=== PATIENT | male | born 1990 | race Caucasian/White ===

== ENCOUNTER 2022-12-19 03:11 | Inpatient (IN) | payer OTHER ==
[2022-12-19] MEDS ORDERED: HYDROmorphone 1 MG/ML 1 ML SYRINGE IVP STA (03:29)
[2022-12-19] MEDS ORDERED: ONDANSETRON 4 MG/2 ML VIAL IVP STA (03:29)
[2022-12-19] MEDS ORDERED: SODIUM CHLORIDE 0.9% 2,000 ML IV STA (03:29)
[2022-12-19] MEDS ORDERED: LORazepam 2 MG/ML INJ IV STA (03:29)
--- NOTE | 2022-12-19 03:32 | ED ---
General Adult HPI - General Chief complaint: Nausea/Vomiting/Diarrhea Stated complaint: Vomiting, Dehydration Time Seen by Provider: 12/19/22 03:20 Source: patient, RN notes reviewed, old records reviewed Mode of arrival: ambulatory Limitations: no limitations - History of Present Illness Initial comments: 32-year-old male presents for evaluation of severe nausea vomiting, generalized pain throughout his arms and abdomen. Patient has had several episodes similar to this in the past and he has been been told that this was related to marijuana ingestion. He does report generalized abdominal pain associated with multiple episodes of vomiting. - Related Data Home Medications Medication Instructions Recorded Confirmed No Known Home Medications 12/19/22 12/19/22 Allergies Allergy/AdvReac Type Severity Reaction Status Date / Time No Known Allergies Allergy Verified 12/19/22 11:33 Review of Systems ROS Statement: Those systems with pertinent positive or pertinent negative responses have been documented in the HPI. ROS Other: All systems not noted in ROS Statement are negative. Past Medical History Past Medical History: No Reported History History of Any Multi-Drug Resistant Organisms: None Reported Past Surgical History: Appendectomy Past Psychological History: Anxiety, Depression Smoking Status: Never smoker Past Alcohol Use History: Occasional Past Drug Use History: Marijuana - Past Family History Father Family Medical History: Cancer Mother Additional Family Medical History / Comment(s): neurological disorders General Exam Limitations: no limitations General appearance: alert, in distress Head exam: Present: atraumatic, normocephalic Eye exam: Present: normal appearance, PERRL ENT exam: Present: mucous membranes dry Neck exam: Present: normal inspection. Absent: tenderness, meningismus Respiratory exam: Present: normal lung sounds bilaterally, respiratory distress (Tachypneic) Cardiovascular Exam: Present: normal rhythm, tachycardia GI/Abdominal exam: Present: soft, tenderness. Absent: distended Neurological exam: Present: alert, oriented X3 Psychiatric exam: Present: anxious Skin exam: Present: warm, dry, intact Course Vital Signs 12/19/22 12/19/22 12/19/22 03:16 05:07 09:05 Temperature 97.8 F 98.5 F Pulse Rate 130 H 78 Pulse Rate [ 78 Pulse Oximetery ] Respiratory 20 20 18 Rate Blood Pressure 116/75 97/58 Blood Pressure 99/60 [Left Arm] O2 Sat by Pulse 96 94 L 97 Oximetry 12/19/22 12/19/22 12/19/22 10:36 12:00 14:57 Temperature Pulse Rate Pulse Rate [ 78 63 63 Pulse Oximetery ] Respiratory 18 18 18 Rate Blood Pressure Blood Pressure 123/78 [Left Arm] O2 Sat by Pulse 97 Oximetry Medical Decision Making - Medical Decision Making Was pt. sent in by a medical professional or institution (VERNA Walsh, SCREEN PRINTING MACHINE OPERATOR, urgent care, hospital, or longterm...) When possible be specific @ -No Did you speak to anyone other than the patient for history (EMS, parent, family, police, friend...)? What history was obtained from this source @ -No Did you review nursing and triage notes (agree or disagree)? Why? @ -I reviewed and agree with nursing and triage notes Were old charts reviewed (outside hosp., previous admission, EMS record, old EKG, old radiological studies, urgent care reports/EKG's, longterm records)? Report findings @ -No old charts were reviewed Differential Diagnosis (chest pain, altered mental status, abdominal pain women, abdominal pain men, vaginal bleeding, weakness, fever, dyspnea, syncope, headache, dizziness, GI bleed, back pain, seizure, CVA, palpatations, mental health, musculoskeletal)? @ -Dehydration, nausea vomiting, cannabis hyperemesis EKG interpreted by me (3pts min.). @ -As above X-rays interpreted by me (1pt min.). @ -None done CT interpreted by me (1pt min.). @ -None done U/S interpreted by me (1pt. min.). @ -None done What testing was considered but not performed or refused? (CT, X-rays, U/S, labs)? Why? @ -None What meds were considered but not given or refused? Why? @ -None Did you discuss the management of the patient with other professionals (professionals i.e. VERNA Walsh, SCREEN PRINTING MACHINE OPERATOR, lab, RT, psych nurse, social media manager, wire mill rover, teacher, railway patrol officer, shelter case manager)? Give summary @ -No Was smoking cessation discussed for >3mins.? @ -No Was critical care preformed (if so, how long)? @ -yes 35 min Were there social determinants of health that impacted care today? How? (Homelessness, low income, unemployed, alcoholism, drug addiction, transportation, low edu. Level, literacy, decrease access to med. care, alf, rehab)? @ -No Was there de-escalation of care discussed even if they declined (Discuss DNR or withdrawal of care, Hospice)? DNR status @ -No What co-morbidities impacted this encounter? (DM, HTN, Smoking, COPD, CAD, Cancer, CVA, ARF, Chemo, Hep., AIDS, mental health diagnosis, sleep apnea, morbid obesity)? @ -None Was patient admitted / discharged? Hospital course, mention meds given and route, prescriptions, significant lab abnormalities, going to OR and other pertinent info. @ -32-year-old male with 8 hours of profound nausea vomiting, generalized abdominal pain. Patient has carpopedal spasm upon arrival. IV established, symptomatic treatment as well as IV fluid is administered, 2 L bolus given. Patient has found lab abnormalities including leukocytosis, hemoconcentration, he has a metabolic acidosis with a CO2 of 7. He is in acute renal failure. He has an elevated calcium at 12.8. Patient will require continued IV hydration, symptomatic control and repeat laboratory testing. He'll be admitted to [facility]. Undiagnosed new problem with uncertain prognosis? @ -No Drug Therapy requiring intensive monitoring for toxicity (Heparin, Nitro, I nsulin, Cardizem)? @ -No Were any procedures done? @ -No Diagnosis/symptom? @ -[Acute renal failure secondary to vomiting and dehydration Acute, or Chronic, or Acute on Chronic? @ -default Uncomplicated (without systemic symptoms) or Complicated (systemic symptoms)? @ -default Side effects of treatment? @ -No Exacerbation, Progression, or Severe Exacerbation? @ -No Poses a threat to life or bodily function? How? (Chest pain, [place], [place], pneumonia, PE, COPD, DKA, ARF, appy, cholecystitis, CVA, Diverticulitis, Homicidal, Suicidal, threat to staff... and all critical care pts) @ -[Yes volume loss, electrolyte abnormality - Lab Data Result diagrams: 12/20/22 09:19 12/20/22 09:19 Lab Results 12/19/22 12/19/22 12/19/22 Range/Units 03:42 03:42 03:42 WBC 26.6 H (3.8-10.6) k/uL RBC 6.03 H (4.30-5.90) m/uL Hgb 19.9 H* (13.0-17.5) gm/dL Hct 56.7 H (39.0-53.0) % MCV 94.1 (80.0-100.0) fL MCH 33.0 (25.0-35.0) pg MCHC 35.1 (31.0-37.0) g/dL RDW 11.9 (11.5-15.5) % Plt Count 513 H (150-450) k/uL MPV 7.1 Neutrophils % 89 % Lymphocytes % 5 % Monocytes % 5 % Eosinophils % 1 % Basophils % 0 % Neutrophils # 23.7 H (1.3-7.7) k/uL Lymphocytes # 1.2 (1.0-4.8) k/uL Monocytes # 1.3 H (0-1.0) k/uL Eosinophils # 0.1 (0-0.7) k/uL Basophils # 0.1 (0-0.2) k/uL Sodium 136 L (137-145) mmol/L Potassium 4.7 (3.5-5.1) mmol/L Chloride 93 L (98-107) mmol/L Carbon Dioxide 7 L* (22-30) mmol/L Anion Gap 36 mmol/L BUN 32 H (9-20) mg/dL Creatinine 3.97 H (0.66-1.25) mg/dL Est GFR (CKD-EPI)AfAm 21 (>60 ml/min/1.73 sqM) Est GFR (CKD-EPI)NonAf 19 (>60 ml/min/1.73 sqM) Glucose 202 H (74-99) mg/dL Calcium 12.8 H (8.4-10.2) mg/dL Total Bilirubin 1.7 H (0.2-1.3) mg/dL AST 54 (17-59) U/L ALT 50 H (4-49) U/L Alkaline Phosphatase 94 (38-126) U/L Total Protein 11.1 H (6.3-8.2) g/dL Albumin >6.0 H (3.5-5.0) g/dL Lipase 383 H (23-300) U/L Urine Color Yellow Urine Appearance Turbid (Clear) Urine pH 5.5 (5.0-8.0) Ur Specific Koppel 1.022 (1.001-1.035) Urine Protein 2+ (Negative) Urine Glucose (UA) Negative (Negative) Urine Ketones 20 (Negative) Urine Blood Large (Negative) Urine Nitrite Negative (Negative) Urine Bilirubin Negative (Negative) Urine Urobilinogen <2.0 (<2.0) mg/dL Ur Leukocyte Esterase Negative (Negative) Urine RBC <1 (0-5) /hpf Urine WBC 10 H (0-5) /hpf Ur Squamous Epith Cells 2 (0-4) /hpf Hyaline Casts 24 H (0-2) /lpf Urine Mucus Few H (None) /hpf Urine Opiates Screen (NotDetected) Ur Oxycodone Screen (NotDetected) Urine Methadone Screen (NotDetected) Ur Propoxyphene Screen (NotDetected) Ur Barbiturates Screen (NotDetected) U Tricyclic Antidepress (NotDetected) Ur Phencyclidine Scrn (NotDetected) Ur Amphetamines Screen (NotDetected) U Methamphetamines Scrn (NotDetected) U Benzodiazepines Scrn (NotDetected) Urine Cocaine Screen (NotDetected) U Marijuana (THC) Screen (NotDetected) 12/19/22 Range/Units 03:42 WBC (3.8-10.6) k/uL RBC (4.30-5.90) m/uL Hgb (13.0-17.5) gm/dL Hct (39.0-53.0) % MCV (80.0-100.0) fL MCH (25.0-35.0) pg MCHC (31.0-37.0) g/dL RDW (11.5-15.5) % Plt Count (150-450) k/uL MPV Neutrophils % % Lymphocytes % % Monocytes % % Eosinophils % % Basophils % % Neutrophils # (1.3-7.7) k/uL Lymphocytes # (1.0-4.8) k/uL Monocytes # (0-1.0) k/uL Eosinophils # (0-0.7) k/uL Basophils # (0-0.2) k/uL Sodium (137-145) mmol/L Potassium (3.5-5.1) mmol/L Chloride (98-107) mmol/L Carbon Dioxide (22-30) mmol/L Anion Gap mmol/L BUN (9-20) mg/dL Creatinine (0.66-1.25) mg/dL Est GFR (CKD-EPI)AfAm (>60 ml/min/1.73 sqM) Est GFR (CKD-EPI)NonAf (>60 ml/min/1.73 sqM) Glucose (74-99) mg/dL Calcium (8.4-10.2) mg/dL Total Bilirubin (0.2-1.3) mg/dL AST (17-59) U/L ALT (4-49) U/L Alkaline Phosphatase (38-126) U/L Total Protein (6.3-8.2) g/dL Albumin (3.5-5.0) g/dL Lipase (23-300) U/L Urine Color Urine Appearance (Clear) Urine pH (5.0-8.0) Ur Specific Koppel (1.001-1.035) Urine Protein (Negative) Urine Glucose (UA) (Negative) Urine Ketones (Negative) Urine Blood (Negative) Urine Nitrite (Negative) Urine Bilirubin (Negative) Urine Urobilinogen (<2.0) mg/dL Ur Leukocyte Esterase (Negative) Urine RBC (0-5) /hpf Urine WBC (0-5) /hpf Ur Squamous Epith Cells (0-4) /hpf Hyaline Casts (0-2) /lpf Urine Mucus (None) /hpf Urine Opiates Screen Detected H (NotDetected) Ur Oxycodone Screen Not Detected (NotDetected) Urine Methadone Screen Not Detected (NotDetected) Ur Propoxyphene Screen Not Detected (NotDetected) Ur Barbiturates Screen Not Detected (NotDetected) U Tricyclic Antidepress Not Detected (NotDetected) Ur Phencyclidine Scrn Not Detected (NotDetected) Ur Amphetamines Screen Not Detected (NotDetected) U Methamphetamines Scrn Not Detected (NotDetected) U Benzodiazepines Scrn Detected H (NotDetected) Urine Cocaine Screen Detected H (NotDetected) U Marijuana (THC) Screen Detected H (NotDetected) Critical Care Time Critical Care Time: Yes Total Critical Care Time: 35 Disposition Clinical Impression: JORGE LUIS (acute kidney injury), Hyperemesis Disposition: ADMITTED IP TO THIS [facility] Condition: Stable Is patient prescribed a controlled substance at d/c from ED?: No Time of Disposition: 08:29
[2022-12-19 04:07] LABS: Basophils # (A) 0.1 k/uL (0-0.2); Basophils % (A) 0 %; Eosinophils # (A) 0.1 k/uL (0-0.7); Eosinophils % (A) 1 %; Lymphocytes # (A) 1.2 k/uL (1.0-4.8); Lymphocytes % (A) 5 %; MCHC 35.1 g/dL (31.0-37.0); MCV 94.1 fL (80.0-100.0); Mean Platelet Volume 7.1; Monocytes # (A) 1.3 k/uL (0-1.0); Monocytes % (A) 5 %; Neutrophils # (A) 23.7 k/uL (1.3-7.7); Neutrophils % (A) 89 %; Platelet Count 513 k/uL (150-450); RBC 6.03 m/uL (4.30-5.90); RDW 11.9 % (11.5-15.5); WBC 26.6 k/uL (3.8-10.6)
[2022-12-19 04:09] LABS: HCT 56.7 % (39.0-53.0); HGB 19.9 gm/dL (13.0-17.5)
[2022-12-19 05:00] LABS: AST 54 U/L (17-59); African American GFR (CKD) 21 (>60 ml/min/1.73 sqM); Alkaline Phosphatase 94 U/L (38-126); Anion Gap 36 mmol/L; Blood Urea Nitrogen 32 mg/dL (9-20); Calcium 12.8 mg/dL (8.4-10.2); Chloride 93 mmol/L (98-107); Glucose 202 mg/dL (74-99); Lipase 383 U/L (23-300); Non-African American GFR(CKD) 19 (>60 ml/min/1.73 sqM); Potassium 4.7 mmol/L (3.5-5.1); Sodium 136 mmol/L (137-145); Total Bilirubin 1.7 mg/dL (0.2-1.3)
[2022-12-19 05:09] LABS: ALT 50 U/L (4-49)
[2022-12-19 05:27] LABS: Carbon Dioxide 7 mmol/L (22-30); Total Protein 11.1 g/dL (6.3-8.2)
[2022-12-19] MEDS ORDERED: NALOXONE 0.4 MG/ML 1 ML VIAL IV PRN (05:29)
[2022-12-19] MEDS ORDERED: HYDROmorphone 0.5 MG/0.5 ML SYRINGE IVP PRN (05:29)
[2022-12-19] MEDS ORDERED: ONDANSETRON 4 MG/2 ML VIAL IVP PRN (05:29)
[2022-12-19] MEDS ORDERED: HYDROmorphone 1 MG/ML 1 ML SYRINGE IVP PRN (05:29)
[2022-12-19] MEDS: SODIUM CHLORIDE 0.9% 1,000 ML IV SCH ×3 (05:36→20:04)
[2022-12-19 05:39] LABS: Albumin >6.0 g/dL (3.5-5.0)
[2022-12-19] MEDS ORDERED: SODIUM CHLORIDE 0.9% 1,000 ML IV ONE (07:39)
[2022-12-19 08:09] LABS: Basophils # (A) 0.1 k/uL (0-0.2); Basophils % (A) 0 %; Eosinophils # (A) 0.1 k/uL (0-0.7); Eosinophils % (A) 0 %; HCT 45.7 % (39.0-53.0); Lymphocytes # (A) 1.3 k/uL (1.0-4.8); Lymphocytes % (A) 6 %; MCH 33.2 pg (25.0-35.0); MCV 94.9 fL (80.0-100.0); Monocytes # (A) 1.4 k/uL (0-1.0); Monocytes % (A) 6 %; Neutrophils # (A) 20.2 k/uL (1.3-7.7); Neutrophils % (A) 86 %; Platelet Count 397 k/uL (150-450); RBC 4.81 m/uL (4.30-5.90); WBC 23.4 k/uL (3.8-10.6)
[2022-12-19 08:25] LABS: Alcohol <10 mg/dL; VBG PH 7.3 (7.31-7.41)
[2022-12-19 08:27] LABS: ALT 30 U/L (4-49); AST 50 U/L (17-59); African American GFR (CKD) 39 (>60 ml/min/1.73 sqM); Albumin 5.1 g/dL (3.5-5.0); Alkaline Phosphatase 63 U/L (38-126); Anion Gap 18 mmol/L; Blood Urea Nitrogen 33 mg/dL (9-20); Calcium 9.9 mg/dL (8.4-10.2); Carbon Dioxide 15 mmol/L (22-30); Chloride 102 mmol/L (98-107); Glucose 119 mg/dL (74-99); Non-African American GFR(CKD) 34 (>60 ml/min/1.73 sqM); Potassium 4.3 mmol/L (3.5-5.1); Sodium 135 mmol/L (137-145); Total Bilirubin 1.1 mg/dL (0.2-1.3); Total Protein 8.1 g/dL (6.3-8.2)
[2022-12-19] MEDS: PANTOPRAZOLE 40 MG/10 ML VIAL IV SCH (09:15)
--- NOTE | 2022-12-19 11:15 | P.HPIM ---
History of Present Illness H&P Date: 12/19/22 (delayed charting seen at 0830) Patient is a 32-year-old male with no known past medical history who presented to the emergency department with complaints of intractable nausea, vomiting, abdominal pain. On arrival to the ER he was tachycardic with a pulse of 1:30 the remainder of his vitals were within normal limits. Laboratory analysis included CBC, BMP, liver enzymes, and lipase which were remarkable for white blood cell count 26.6, hemoglobin 19.9, platelets 513, sodium 136, chloride 93, carbon dioxide 7, anion gap 36, BUN 32, creatinine 3.97, glucose 202, bilirubin 1.7, ALT 50, total protein 11.1, lipase 383. He was subsequently started on IV fluid resuscitation and antiemetics. Arrangements are made for admission. Patient seen and examined at bedside. He reports that he was driving home from [employer] yesterday when he had sudden onset of nausea, vomiting, and abdominal pain. He does have a history of motion sickness as well as hyperemesis syndrome. He has had 3-4 episodes similar to this in the past. After receiving IV fluids and antiemetics he is no longer having any vomiting but still feels slightly nauseated, his belly pain feels like a cramping. He denies any sickness or illness prior to the sudden onset of this such as cough, cold, fever, flu. He was trying to use a hot tub to help quell his symptoms. Vital signs reviewed General: Ill appearing, mild distress, appears at stated age Derm: warm, dry Eyes: EOMI, no lid lag, anicteric sclera ENT: Nose and ears atraumatic, no thrush, + pharyngeal erythema Cardiovascular: S1S2 reg, no murmur, positive posterior tibial pulse bilateral, no edema Lungs: clear to auscultation bilateral, no rhonchi, no rales, no wheeze, no accessory muscle use Abdominal: soft, mildly tender to palpation diffusely, no guarding, no appreciable organomegaly, normal bowel sounds Ext: no gross muscle atrophy, no contractures Neuro: CN II-XII grossly intact, no focal neuro deficits Psych: Alert, oriented, appropriate affect Assessment/Plan: Intractable nausea and vomiting-suspect cannabinoid hyperemesis Systemic inflammatory response syndrome-suspect related to intractable vomiting Anion gap metabolic acidosis Acute kidney injury Hyperglycemia Hypercalcemia -Check stat lactic acid, serum acetone, and alcohol levels -1 L normal saline, then 130 mL/h -Zofran 4 mg IV every 8 hours as needed for nausea -Protonix 40 mg IV daily -Check CT abdomen and pelvis nicotine dependency - patient does not want nicotine replacement Imaging: As per HPI Data Review: As per HPI The patient is admitted with an anticipated greater than 2 midnight stay for evaluation of hyperemesis, renal failure, anion gap metabolic acidosis. DVT prophylaxis: Early ambulation Discussed with: The ER provider, nursing, patient Anticipated discharge date: Pending clinical course Anticipated discharge place: Pending clinical course This dictation was prepared using [employer] voice recognition software. Though every attempt is made to correct errors during dictation some may still exist. Past Medical History Past Medical History: No Reported History History of Any Multi-Drug Resistant Organisms: None Reported Past Surgical History: Appendectomy Past Psychological History: Anxiety, Depression Smoking Status: Current some day smoker Past Alcohol Use History: Occasional Past Drug Use History: Marijuana Medications and Allergies Allergies Allergy/AdvReac Type Severity Reaction Status Date / Time No Known Allergies Allergy Verified 12/19/22 03:19 Physical Exam Osteopathic Statement: *. No significant issues noted on an osteopathic structural exam other than those noted in the History and Physical/Consult. Vitals: Vital Signs Temp Pulse Pulse Resp BP BP Pulse Ox 12/19/22 10:36 78 18 12/19/22 09:05 98.5 F 78 18 99/60 97 12/19/22 05:07 78 20 97/58 94 L 12/19/22 03:16 97.8 F 130 H 20 116/75 96 Intake and Output 12/18/22 12/19/22 12/19/22 22:59 06:59 14:59 Intake Total 1000 Balance 1000 Intake: Intake, IV Titration 1000 Amount Sodium Chloride 0.9% 1, 1000 000 ml @ 999 mls/hr IV . Q1H1M ONE Rx#:[id number] Other: Weight 77.111 kg Results CBC & Chem 7: 12/19/22 07:48 12/19/22 07:48 Labs: Abnormal Lab Results - Last 24 Hours (Table) 12/19/22 12/19/22 12/19/22 Range/Units 03:42 03:42 07:48 WBC 26.6 H 23.4 H (3.8-10.6) k/uL RBC 6.03 H (4.30-5.90) m/uL Hgb 19.9 H* (13.0-17.5) gm/dL Hct 56.7 H (39.0-53.0) % Plt Count 513 H (150-450) k/uL Neutrophils # 23.7 H 20.2 H (1.3-7.7) k/uL Monocytes # 1.3 H 1.4 H (0-1.0) k/uL VBG pH (7.31-7.41) VBG HCO3 (24-28) mmol/L Sodium 136 L (137-145) mmol/L Chloride 93 L (98-107) mmol/L Carbon Dioxide 7 L* (22-30) mmol/L BUN 32 H (9-20) mg/dL Creatinine 3.97 H (0.66-1.25) mg/dL Glucose 202 H (74-99) mg/dL Calcium 12.8 H (8.4-10.2) mg/dL Total Bilirubin 1.7 H (0.2-1.3) mg/dL ALT 50 H (4-49) U/L Total Protein 11.1 H (6.3-8.2) g/dL Albumin >6.0 H (3.5-5.0) g/dL Lipase 383 H (23-300) U/L 12/19/22 12/19/22 Range/Units 07:48 07:49 WBC (3.8-10.6) k/uL RBC (4.30-5.90) m/uL Hgb (13.0-17.5) gm/dL Hct (39.0-53.0) % Plt Count (150-450) k/uL Neutrophils # (1.3-7.7) k/uL Monocytes # (0-1.0) k/uL VBG pH 7.30 L (7.31-7.41) VBG HCO3 19 L (24-28) mmol/L Sodium 135 L (137-145) mmol/L Chloride (98-107) mmol/L Carbon Dioxide 15 L (22-30) mmol/L BUN 33 H (9-20) mg/dL Creatinine 2.42 H (0.66-1.25) mg/dL Glucose 119 H (74-99) mg/dL Calcium (8.4-10.2) mg/dL Total Bilirubin (0.2-1.3) mg/dL ALT (4-49) U/L Total Protein (6.3-8.2) g/dL Albumin 5.1 H (3.5-5.0) g/dL Lipase (23-300) U/L
[2022-12-19 11:58] LABS: Hyaline Casts,Urine 24 /lpf (0-2); Mucus,Urine Few /hpf; RBC,Urine <1 /hpf (0-5); Squamous Epithelial Cell,Urine 2 /hpf (0-4); WBC,Urine 10 /hpf (0-5)
[2022-12-19 12:03] LABS: Amphetamine Screen,Urine Not Detected (NotDetected); Barbiturate Screen,Urine Not Detected (NotDetected); Benzodiazepines Screen,Urine Detected (NotDetected); Cocaine Screen,Urine Detected (NotDetected); Methadone Screen, Urine Not Detected (NotDetected); Opiate Screen,Urine Detected (NotDetected); Oxycodone Screen, Urine Not Detected (NotDetected); Phencyclidine Screen,Urine Not Detected (NotDetected); Tricyclic Antidepressant,Urine Not Detected (NotDetected); Urn Cannabinoid Scrn Detected (NotDetected)
[2022-12-19 12:58] LABS: Appearance,Urine Turbid (Clear); Color,Urine Yellow; Glucose,Urine (UA) Negative (Negative); Ketones,Urine 20 (Negative); PH, Urine 5.5 (5.0-8.0); Protein,Urine 2+ (Negative); Specific Gravity,Urine 1.022 (1.001-1.035)
[2022-12-19 12:59] LABS: Bilirubin,Urine Negative (Negative); Blood,Urine Large (Negative); Leukocyte Esterase,Urine Negative (Negative); Nitrite,Urine Negative (Negative); Urobilinogen,Urine <2.0 mg/dL (<2.0)
--- NOTE | 2022-12-19 14:47 | CT ---
EXAMINATION TYPE: CT abdomen pelvis wo con CT DLP: 456.8 mGycm, Automated exposure control for dose reduction was used. DATE OF EXAM: 12/19/2022 11:21 AM COMPARISON: None. CLINICAL INDICATION:Male, 32 years old with history of persistent vomiting; Persistent vomiting TECHNIQUE: Axial CT of the abdomen and pelvis. Sagittal and coronal reformats were created on a [employer] workstation. Contrast used: mL of , (none if empty) Oral contrast used: without Oral Contrast (none if empty) FINDINGS: Exam limited without contrast. LOWER CHEST: Unremarkable ABDOMEN LIVER: Unremarkable GALLBLADDER AND BILE DUCTS: Unremarkable. PANCREAS: Possible subtle ill-definition of the pancreatic margins and slight surrounding fat strandi ng. SPLEEN: Unremarkable. ADRENAL GLANDS: Unremarkable. KIDNEYS AND URETERS: No evidence of hydronephrosis or renal calculus. The ureters are unremarkable. PELVIS BLADDER: Unremarkable REPRODUCTIVE: Normal-sized prostate with a couple tiny parenchymal calcifications. ABDOMEN & PELVIS STOMACH AND BOWEL: Stomach and duodenum are unremarkable. No evidence of bowel obstruction. Appendix is not seen and there are clips adjacent to the cecum suggestive of prior appendectomy. Mild/moderate stool throughout the colon without definite focal normality. PERITONEUM/RETROPERITONEUM: No evidence of pneumoperitoneum or free fluid. VASCULATURE: No evidence of aortic aneurysm. MUSCULOSKELETAL: No acute osseous abnormalities LYMPH NODES: No gross evidence for lymphadenopathy. SOFT TISSUE/ABDOMINAL WALL: Unremarkable IMPRESSION: 1. Limited study shows no clear evidence of an acute obstructive or inflammatory process in the abdo men or pelvis. 2. Question possible mild peripancreatic inflammatory changes. Correlate clinically with serum labor atory values to exclude pancreatitis.
[2022-12-20] MEDS: SODIUM CHLORIDE 0.9% 1,000 ML IV SCH (01:17)
[2022-12-20] MEDS: PANTOPRAZOLE 40 MG/10 ML VIAL IV SCH (08:55)
[2022-12-20 10:06] LABS: HCT 44.8 % (39.0-53.0); HGB 15.1 gm/dL (13.0-17.5); MCH 32.9 pg (25.0-35.0); MCHC 33.7 g/dL (31.0-37.0); MCV 97.4 fL (80.0-100.0); Platelet Count 361 k/uL (150-450); WBC 12.6 k/uL (3.8-10.6)
[2022-12-20 10:32] LABS: African American GFR (CKD) >90 (>60 ml/min/1.73 sqM); Anion Gap 11 mmol/L; Blood Urea Nitrogen 23 mg/dL (9-20); Calcium 9.2 mg/dL (8.4-10.2); Carbon Dioxide 24 mmol/L (22-30); Chloride 101 mmol/L (98-107); Glucose 84 mg/dL (74-99); Non-African American GFR(CKD) >90 (>60 ml/min/1.73 sqM); Potassium 4.3 mmol/L (3.5-5.1); Sodium 136 mmol/L (137-145)
[2022-12-20 12:08] VITALS: RESP 16; TEMP 98.1
[2022-12-20 12:29] VITALS: BP 132/80; PULSE 73
--- NOTE | 2022-12-20 18:26 | P.DS ---
Providers Date of admission: 12/19/22 05:29 Expected date of discharge: 12/20/22 Attending physician: Raissa King MD Primary care physician: Stated None Hospital Course: Discharge Diagnosis: Intractable nausea and vomiting-due to cannabinoid hyperemesis Systemic inflammatory response syndrome-suspect related to intractable vomiting Anion gap metabolic acidosis Acute kidney injury Hyperglycemia Hypercalcemia Hospital Course: Patient is a 32-year-old male with no known past medical history who presented to the emergency department with complaints of intractable nausea, vomiting, abdominal pain. On arrival to the ER he was tachycardic with a pulse of 1:30 the remainder of his vitals were within normal limits. Laboratory analysis included CBC, BMP, liver enzymes, and lipase which were remarkable for white blood cell count 26.6, hemoglobin 19.9, platelets 513, sodium 136, chloride 93, carbon dioxide 7, anion gap 36, BUN 32, creatinine 3.97, glucose 202, bilirubin 1.7, ALT 50, total protein 11.1, lipase 383. He was subsequently started on IV fluid resuscitation and antiemetics. Arrangements were made for admission. He was continued on IV fluids. Cannot CT abdomen and pelvis which shows no evidence of acute obstruction or inflammatory process, but possible mild peripancreatic inflammatory changes. His continued on a clear liquid diet. His symptoms resolved. He was able to tolerate a regular diet. His laboratory abnormalities improved significantly. He was determined stable for discharge home. Follow-up: Patient was told to follow-up with her primary care physician of his choice. He was told to continue with IV fluids over the next several days and to return with any recurrent vomiting or abdominal pain. Patient seen and examined at bedside. Doing well. No more nausea or vomiting. Asking to be discharged home. Vital signs reviewed and stable. General: nontoxic, no distress, appears at stated age Cardiovascular: S1S2 reg, no murmur, positive posterior tibial pulse bilateral, Lungs: CTA bilateral, no rhonchi, no rales , no accessory muscle use Abdominal: soft, nontender to palpation, no guarding, no appreciable organomegaly Ext: no gross muscle atrophy, no edema b/l lower extremities, no contractures Neuro: CN II-XI grossly intact, no focal neuro deficits Psych: Alert, oriented, appropriate affect A total of 32 minutes of time were spent preparing this complex discharge summary. Patient was discharged on 12/20/22. This dictation was prepared using [employer] voice recognition software. Though every attempt is made to correct errors during dictation some may still exist. Plan - Discharge Summary Discharge Rx Participant: No New Discharge Prescriptions: No Action No Known Home Medications Discharge Medication List No Known Home Medications 12/19/22 [History] Follow up Appointment(s)/Referral(s): None,Stated [Primary Care Provider] - 1-2 days (Please establish and follow with a primary physician. ) Patient Instructions/Handouts: Dehydration (DC), Acute Kidney Injury (DC) Activity/Diet/Wound Care/Special Instructions: Activity: As tolerated Diet: Regular Special Instructions: Keep up on fluids for the next several days Return with recurrent vomiting or abdominal pain. Discharge/Stand Alone Forms: Area PCPs Discharge Disposition: HOME SELF-CARE
--- NOTE | 2022-12-23 10:47 | CDI ---
Documentation Clarification Form Date: 12/23/2022 10:16:11 AM From: Caitlyn Marquez RN, CCDS Email: [email or web address] Admit Date: 12/19/2022 05:29:00 AM Patient Name: Keith Peña Visit Number: [id number] Discharge Date: 12/20/2022 01:17:00 PM ATTENTION: The Clinical Documentation Specialists (CDI) and [facility] Coding Staff appreciate your assistance in clarifying documentation. Please respond to the clarification below the line at the bottom and electronically sign. The CDI & [facility] Coding staff will review the response and follow-up if needed. Please note: Queries are made part of the Legal Health Record. If you have any questions, please contact the author of this message via ITS. Dr. Gwen Delong Your patient had SIRS related to intractable vomiting. Based on this information and the findings below, please provide further clarification for this diagnosis. History/Risk Factors: motion sickness, hyperemesis syndrome, marijuana ingestion, anxiety and depression. Presents with intractable nausea, vomiting and abdominal pain. Admitted with Intractable nausea and vomiting due to cannabinoid hyperemesis. Clinical Indicators: 12/19-12/20 WBC: 26.6-23.4-12.6 12/19 Neutrophils: 23.7-20.2 12/19-12/20 Cr: 3.97-2.42-1.06; anion gap 36-18-11; CO2 7-15-24 12/19 VBG: pH 7.30, pCO2 38, HCO3 19 12/19 vital signs: HR 130 H&P: "Intractable nausea and vomiting-suspect cannabinoid hyperemesis. Systemic inflammatory response syndrome-suspect related to intractable vomiting. Anion gap metabolic acidosis. Acute kidney injury. Discharge summary: Intractable nausea and vomiting-due to cannabinoid hyperemesis. Systemic inflammatory response syndrome-suspect related to intractable vomiting. Treatment: 0.9 NS 2L IV bolus on 12/19 then 130mL/hr; Protonix 40mg IV daily 12/19-12/20; IV Zofran 4mg x1 on 12/19; IV Ativan 1mg x1 on 12/19 Please provide further clarification: [ X ] SIRS, due to vomiting, with JORGE LUIS and metabolic acidosis [ ] Other, please specify [ ] Unable to determine SIRS Criteria: 2 or more of the following may indicate SIRS -Temperature < 96.8F(36C) or > 101.0F (38.3C) -Heart Rate > 90 bpm -Respiratory Rate > 20 breaths/min or PaCO2 < 32 mmHg -White Blood Cell Count > 12,000 or < 4,000 cells/mm3 or > 10% bands MTDD
== END 2022-12-20 13:17 | disposition home or self-care (01) | DRG 391 ==
LOC: EC 03:11 → 3SCARD 05:29
PROVIDERS: ADMIT Internal Medicine; ATTEND Internal Medicine
DX: R11.2 Nausea with vomiting, unspecified (principal); R65.11 Systemic inflammatory response syndrome (SIRS) of non-infectious origin with acute organ dysfunction; N17.9 Acute kidney failure, unspecified; E87.20 Acidosis, unspecified; E86.0 Dehydration; T40.722A Poisoning by synthetic cannabinoids, intentional self-harm, initial encounter; E83.52 Hypercalcemia; F32.A Depression, unspecified; F41.9 Anxiety disorder, unspecified; R73.9 Hyperglycemia, unspecified; Z71.6 Tobacco abuse counseling; Z71.51 Drug abuse counseling and surveillance of drug abuser
CPT/HCPCS: 36415; 74176; 80048; 80053; 80306; 80320; 81001; 82009; 82803; 83605; 83690; 85025; 85027; 96361; 96374; 96375; 99291